=== PATIENT | female | born 2000 | race Caucasian/White ===

== ENCOUNTER 2025-02-24 19:22 | Emergency (ER) | payer MEDICAID | END 2025-02-24 20:45 | disposition home or self-care (01) | LOC: MW.ED 19:22 | DX: O9A.212 Injury, poisoning and certain other consequences of external causes complicating pregnancy, second trimester (principal); S50.02XA Contusion of left elbow, initial encounter; Z88.0 Allergy status to penicillin; Z88.8 Allergy status to other drugs, medicaments and biological substances; Z3A.17 17 weeks gestation of pregnancy; V86.59XA Driver of other special all-terrain or other off-road motor vehicle injured in nontraffic accident, initial encounter; Y93.89 Activity, other specified | CPT/HCPCS: 73080-26-LT; 73080-LT; 99283 ==